=== PATIENT | female | born 1980 | race Caucasian/White ===

== ENCOUNTER → 2019-05-08 | Outpatient (CLI) | payer MEDICAID ==
[2019-05-08 18:14] LABS: HEMATOCRIT 35.4 % (36.0-47.0); HEMOGLOBIN 11.7 g/dl (12.0-15.5); MEAN CORPUSCULAR HEMOGLOBIN 32.5 pg (27.0-33.0); MEAN CORPUSCULAR HGB CONC 33.1 g/dl (32.0-36.5); MEAN CORPUSCULAR VOLUME 98.3 fl (80.0-96.0); WHITE BLOOD COUNT 8.1 10^3/uL (4.0-10.0)
[2019-05-08 18:49] LABS: PLATELET COUNT, AUTOMATED 94 10^3/uL (150-450)
== END ==
LOC: M PLALAB 13:04
PROVIDERS: ATTEND Advanced Practice Midwife
DX: D69.6 Thrombocytopenia, unspecified (principal)

== ENCOUNTER → 2019-05-15 | Outpatient (REF) | payer MEDICAID, OTHER | LOC: M SFHCWAGY 17:02 | PROVIDERS: ATTEND Obstetrics & Gynecology | DX: Z36.85 Encounter for antenatal screening for Streptococcus B (principal) ==

== ENCOUNTER → 2019-05-22 | Outpatient (CLI) | payer OTHER ==
[2019-05-22 18:28] LABS: PLATELET COUNT, AUTOMATED 100 10^3/uL (150-450)
== END ==
LOC: M PLALAB 14:27
PROVIDERS: ATTEND Advanced Practice Midwife
DX: D69.6 Thrombocytopenia, unspecified (principal)

== ENCOUNTER 2019-06-08 12:28 | Inpatient (IN) | payer MEDICAID, OTHER ==
[2019-06-08] VITALS (40 sets, daily range): BP systolic 114–164; BP diastolic 65–97
[~2019-06-08] VITALS: Ht 170.2 cm; Wt 77.8 kg
[2019-06-08] MEDS ORDERED: TUMS750C5 PO (12:58)
[2019-06-08] MEDS ORDERED: PRENTAB9 PO (12:58)
[2019-06-08] MEDS ORDERED: LACTATED RINGER'S 1000 ML IV STA (13:27)
[2019-06-08] MEDS: LR 1,000 ML IV SCH ×2 (14:06→16:06)
[2019-06-08] MEDS ORDERED: OXYTOCIN DRIP 30 UNITS in IV 1 EA IV SCH (14:30)
[2019-06-08 14:33] LABS: HEMATOCRIT 39.6 % (36.0-47.0); HEMOGLOBIN 13.4 g/dl (12.0-15.5); MEAN CORPUSCULAR HEMOGLOBIN 32.2 pg (27.0-33.0); MEAN CORPUSCULAR HGB CONC 33.8 g/dl (32.0-36.5); MEAN CORPUSCULAR VOLUME 95.2 fl (80.0-96.0); PLATELET COUNT, AUTOMATED 113 10^3/uL (150-450); RED BLOOD COUNT 4.16 10^6/uL (4.00-5.40); WHITE BLOOD COUNT 10.6 10^3/uL (4.0-10.0)
[2019-06-08] MEDS ORDERED: CALCIUM CARBONATE 500 MG CHEW U/D PO ONE (15:30)
[2019-06-08] MEDS ORDERED: FENTANYL 2MCG/ML ROPIVACAINE 0.2% IN 0.9% NACL 100ML IVBAG As Ordered ONE (15:45)
[2019-06-08] MEDS ORDERED: NALOXONE INJ 0.4 MG/1 ML VIAL (J2310) IV PRN (16:45)
[2019-06-08] MEDS ORDERED: FENTANYL/ROPIVACAINE/NACL BAG 100 ML EPIDURAL SCH (16:45)
[2019-06-08] MEDS ORDERED: EPIDURAL/PCA KEYS XX PRN (16:45)
[2019-06-08] MEDS ORDERED: ONDANSETRON 4MG/2ML VIAL (J2405) IV PRN (16:45)
[2019-06-08] MEDS ORDERED: REFRIGERATOR IV KEYS XX PRN (16:45)
[2019-06-08] MEDS ORDERED: LACTATED RINGER'S 1000 ML IV PRN (16:45)
[2019-06-08] MEDS ORDERED: diphenhydrAMINE INJ 50MG/ML VIAL (J1200) IV PRN (16:45)
[2019-06-08] MEDS ORDERED: EPIDURAL COMMENT XX SCH (16:45)
[2019-06-08] MEDS ORDERED: ePHEDrine SULFATE 25 MG/5 ML(5MG/ML) SYRINGE IV PRN (16:45)
[2019-06-08] MEDS ORDERED: FAMOTIDINE 20 MG TAB PO ONE (17:00)
[2019-06-09] VITALS (10 sets, daily range): BP systolic 93–146; BP diastolic 56–67
[2019-06-09] MEDS ORDERED: ONDANSETRON 4MG/2ML VIAL (J2405) IV PRN (00:30)
[2019-06-09] MEDS ORDERED: METHYLERGONOVINE MALEATE 0.2 MG TAB PO PRN (00:30)
[2019-06-09] MEDS ORDERED: ACETAMINOPHEN 500 MG TAB PO PRN (00:30)
[2019-06-09] MEDS ORDERED: RHOGAM 300 MCG (1500 IU) INJ (J2790) IM SCH (00:30)
[2019-06-09] MEDS ORDERED: DOCUSATE SODIUM 100 MG CAP PO PRN (00:30)
[2019-06-09] MEDS ORDERED: DIBUCAINE 1% OINTMENT 30GM TOP PRN (00:30)
[2019-06-09] MEDS ORDERED: OXYTOCIN DRIP 30 UNITS in IV 1 EA IV ONE (00:30)
[2019-06-09] MEDS ORDERED: IBUPROFEN 600 MG TAB PO PRN (00:30)
[2019-06-09] MEDS ORDERED: MEASLES,MUMPS,RUBELLA VACCINE INJ (MMR-II) (90707) SC SCH (00:30)
[2019-06-09] MEDS: IBUPROFEN 800 MG TAB PO PRN ×2 (05:58→14:26)
--- NOTE | 2019-06-09 07:23 | DN ---
DATE: 06/08/2019 PREDELIVERY DIAGNOSIS: 39-2/7 weeks gestation, advanced maternal age, induction. POSTDELIVERY DIAGNOSIS: Delivered. PROCEDURE: Spontaneous vaginal delivery. SOCIAL SECRETARY: Dr. Cristiano Gupta. ANESTHESIA: Epidural. ESTIMATED BLOOD LOSS: 300 mL. FINDINGS: 7 pound 1 ounce female with scores 8 and 9. DELIVERY SUMMARY: After five minutes second stage, the patient had spontaneous delivery of a 7 pound 1 ounce female with scores 8 and 9 under epidural anesthesia. There was no nuchal cord. The shoulders delivered with ease. The infant cried immediately and was handed to the mother. The cord was doubly clamped and cut. The placenta delivered with manual extraction and appeared to be intact. The patient received intravenous (IV) Pitocin after delivery of the placenta. There were no vaginal lacerations present. Sponge counts were correct.
[2019-06-09] MEDS: PRENATAL VITAMINS CHEWABLE TABLET PO SCH (08:11)
[2019-06-09] MEDS: ACETAMINOPHEN TAB 650MG DOSE (2X325MG) PO PRN ×3 (08:21→19:44)
[2019-06-10 06:00] VITALS: BP 108/59
[2019-06-10] MEDS: PRENATAL VITAMINS CHEWABLE TABLET PO SCH (09:30)
== END 2019-06-10 14:00 | disposition home or self-care (01) | DRG 541 ==
LOC: M LDI 12:28 → M OBS 06-09 02:19
PROVIDERS: ADMIT Obstetrics & Gynecology; ATTEND Obstetrics & Gynecology
PROC: 10E0XZZ Delivery of Products of Conception, External Approach (ICD-10-PCS; principal; 2019-06-08)
PROC: 10D17Z9 Manual Extraction of Products of Conception, Retained, Via Natural or Artificial Opening (ICD-10-PCS; 2019-06-08)
DX: O73.0 Retained placenta without hemorrhage (principal); O09.523 Supervision of elderly multigravida, third trimester; Z37.0 Single live birth; Z3A.39 39 weeks gestation of pregnancy

== ENCOUNTER → 2024-10-09 | Outpatient (REF) | payer OTHER, MEDICAID ==
[~2024-10-09] MED LIST: PRENTAB9 PO; TUMS750C5 PO
[2024-10-09 14:50] LABS: HEMATOCRIT 37.5 % (36.0-47.0); HEMOGLOBIN 12.5 g/dl (12.0-15.5); MEAN CORPUSCULAR HGB CONC 33.3 g/dl (32.0-36.5); MEAN CORPUSCULAR VOLUME 89.9 fl (80.0-96.0); PLATELET COUNT, AUTOMATED 168 10^3/uL (150-450); RED BLOOD COUNT 4.17 10^6/uL (4.00-5.40); WHITE BLOOD COUNT 6.9 10^3/uL (4.0-10.0)
[2024-10-09 14:57] LABS: ALBUMIN 3.6 G/DL (3.2-5.2); ALKALINE PHOSPHATASE 76 U/L (35-104); ALT/SGPT 32 U/L (7.0-40); AST/SGOT 13 U/L (<34); BILIRUBIN,TOTAL 0.7 MG/DL (0.3-1.2); BLOOD UREA NITROGEN 7 MG/DL (9-23); CALCIUM LEVEL 8.6 MG/DL (8.5-10.1); CARBON DIOXIDE LEVEL 26 MMOL/L (20-31); CHLORIDE LEVEL 105 MMOL/L (98-107); CHOLESTEROL LEVEL 165 MG/DL (<200); CHOLESTEROL RISK RATIO 4.28 (<5); CREATININE FOR GFR 0.61 MG/DL (0.55-1.30); GLOMERULAR FILTRATION RATE > 90.0 (>58); GLUCOSE, FASTING 91 MG/DL (60-100); HDL CHOLESTEROL 38.5 MG/DL (>40); LDL CHOLESTEROL 85.7 MG/DL (<100); NON-HDL-C 126.5 MG/DL; POTASSIUM SERUM 4.2 MMOL/L (3.5-5.1); SODIUM LEVEL 139 MMOL/L (136-145); TOTAL PROTEIN 6.9 G/DL (5.7-8.2); TRIGLYCERIDES LEVEL 204 MG/DL (<150)
[2024-10-09 14:59] LABS: THYROID STIMULATING HORMONE 1.971 uIU/ML (0.55-4.78); TOTAL 25(OH) VITAMIN D 23.4 NG/ML (20.0-100.0)
[2024-10-09 15:17] LABS: HEMOGLOBIN A1c 5.3 % (4.0-6.0)
== END ==
LOC: M LAB REF 14:18
PROVIDERS: ATTEND Student in an Organized Health Care Education/Training Program
DX: E55.9 Vitamin D deficiency, unspecified (principal); Z68.29 Body mass index [BMI] 29.0-29.9, adult; Z12.39 Encounter for other screening for malignant neoplasm of breast

== ENCOUNTER → 2025-01-28 | Outpatient (REF) ==
[2025-01-28 12:30] LABS: HEPATITIS B SURFACE ANTIBODY POSITIVE (POSITIVE)
== END ==
LOC: M LAB 11:20
PROVIDERS: ATTEND Family Medicine
DX: Z13.9 Encounter for screening, unspecified (principal)

== ENCOUNTER → 2025-04-24 | Outpatient (REF) | LOC: M EMP 11:46 | PROVIDERS: ATTEND Family Medicine | DX: Z53.9 Procedure and treatment not carried out, unspecified reason (principal) ==